=== PATIENT | male | born 1995 | race African-American/Black ===

== ENCOUNTER 2024-02-17 19:02 | Emergency (ER) | payer OTHER ==
--- NOTE | 2024-02-17 19:49 | ED Physician Documentation ---
PD HPI UPPER EXT INJURY - Stated complaint Stated Complaint: LT ANKLE INJ - Chief complaint Chief Complaint: Ext Problem - Additonal information Additional information: Patient was not seen by me, but by nurse practitioner Kandace. PAST MEDICAL HISTORY - Past Medical History Past Medical History: No - Past Surgical History Past Surgical History: No - Present Medications Home Medications: Ambulatory Orders Medication Instructions Recorded Confirmed No Known Home Medications 02/17/24 02/17/24 - Allergies Allergies/Adverse Reactions: Allergies Allergy/AdvReac Type Severity Reaction Status Date / Time No Known Drug Allergies Allergy Verified 02/17/24 19:34 - Social History Does the pt smoke?: No Smoking Status: Never smoker Does the pt drink ETOH?: No Does the pt have substance abuse?: No - Immunizations Immunizations are current?: Yes - POLST Patient has POLST: No Results - Vitals Vitals: Vital Signs - 24 hr 02/17/24 02/17/24 19:30 21:30 Temperature 36.8 C Heart Rate 76 85 Respiratory 18 16 Rate Blood Pressure 151/87 H 152/90 H O2 Saturation 98 100 Oxygen O2 Source Room air Departure - Departure Disposition: 01 Home, Self Care Clinical Impression: Closed left ankle fracture Instructions: ED Splint Care Aircast Splint Boot Follow-Up: [facility] [Provider Group] Comments: Thank you trusting us with your care. The radiologist is reading a possible fracture on your left ankle. It is at the medial malleolus and it is nondisplaced. We have placed you in a walking boot and want you to treat this as if it is a cast and leave it on at all times. We are also sending home with crutches and I would limit any weightbearing activity on your ankle until you are able to follow-up with Ortho. Call the [facility] to see if they want you following up with one of their docs or ours but I have gone ahead and given you the information to reach out to [facility] orthopedic surgeons for further evaluation under discharge paperwork. You could alternate between Tylenol and ibuprofen for any pain or discomfort make sure that you are icing frequently 20 minutes on 1 hour off and keeping your foot elevated above your heart anytime you are at rest especially when you are sleeping. Wishing you a speedy recovery. Forms: PCP List Discharge Date/Time: 02/17/24 21:30
--- NOTE | 2024-02-17 20:41 | XRAY Report ---
PROCEDURE: Ankle 3+V LT INDICATIONS: injury/pain TECHNIQUE: 3 views of the ankle were acquired. COMPARISON: None. FINDINGS: Bones: Questionable subtle cortical irregularity at the medial aspect of the medial malleolus. Ankle mortise is normally aligned. No suspicious bony lesions. Soft tissues: No tibiotalar joint effusion. Achilles tendon appears normal. Mild nonspecific soft tissue edema. IMPRESSION: Questionable nondisplaced fracture at the medial malleolus. Recommend clinical correlation for point tenderness. Repeat radiographs could be performed in 7-10 days for further evaluation if indicated cl inically. Reviewed by: David Coffman MD on 02/17/2024 8:40 PM PDT Approved by: David Coffman MD on 02/17/2024 8:40 PM PDT Station ID: [id number]
[2024-02-17] MEDS: IBUPROFEN 600 MG TABLET PO STA (20:53)
[2024-02-17] MEDS: ACETAMINOPHEN 325 MG TABLET PO STA (20:54)
[2024-02-17 21:33] VITALS: BP 152/90; O2SAT 100
--- NOTE | 2024-02-18 14:59 | ED Physician Documentation ---
PD HPI LOWER EXT INJURY - Stated complaint Stated Complaint: LT ANKLE INJ - Chief complaint Chief Complaint: Ext Problem - Additional information Additional information: 28-year-old male presents emergency department for left ankle pain. Patient says that he was playing [employer], he is unsure the exact mechanism of injury but somehow fell onto his left ankle rolled it did not hear any loud audible popping noises but did feel immediate pain to the left lateral malleolus. No pain to Achilles able to ambulate. PD PAST MEDICAL HISTORY - Past Medical History Past Medical History: No - Past Surgical History Past Surgical History: No - Present Medications Home Medications: Ambulatory Orders Medication Instructions Recorded Confirmed No Known Home Medications 02/17/24 02/17/24 - Allergies Allergies/Adverse Reactions: Allergies Allergy/AdvReac Type Severity Reaction Status Date / Time No Known Drug Allergies Allergy Verified 02/17/24 19:34 - Social History Does the pt smoke?: No Smoking Status: Never smoker Does the pt drink ETOH?: No Does the pt have substance abuse?: No - Immunizations Immunizations are current?: Yes - POLST Patient has POLST: No PD ED PE NORMAL - Vitals Vital signs reviewed: Yes - General General: Alert and oriented X 3, No acute distress, Well developed/nourished - Derm Derm: Normal color, Warm and dry, No rash - Extremities Extremities: Other (Left lower extremity: Tenderness to the left lateral malleolus medial region. Able to flex and extend mild swelling to the left lateral region of the ankle. No tenderness to Achilles) Results - Vitals Vitals: Oxygen O2 Source Room air - Rads (name of study) Left ankle x-ray Relevant Findings:: Final report received, EMP independent interpretation of test, Other (Possible nondisplaced fracture at the medial malleolus) PD Medical Decision Making - ED course ED course: 28-year-old male presents emergency department for left ankle tenderness. He was able to ambulate with any difficulty differentials include but not limited to sprain, contusion, fracture. X-rays confirm possible nondisplaced lateral malleolus fracture to the left ankle this is where patient was most tender. Patient is placed in a walking boot and was told to not remove the walking boot to treat it as if it is a splint till he is able to follow-up with Ortho outpatient. He was offered crutches and strongly advised to use crutches but patient declined and said that he wanted to hold off for now. ER return precautions given pain better controlled with Tylenol ibuprofen all questions answered safe for discharge. Departure - Departure Disposition: 01 Home, Self Care Clinical Impression: Closed left ankle fracture Qualifiers: Encounter type: initial encounter Qualified Code(s): S82.892A - Other fracture of left lower leg, initial encounter for closed fracture Instructions: ED Splint Care Aircast Splint Boot [facility]Up: [facility] [Provider Group] Comments: Thank you trusting us with your care. The radiologist is reading a possible fracture on your left ankle. It is at the medial malleolus and it is nondisplaced. We have placed you in a walking boot and want you to treat this as if it is a cast and leave it on at all times. We are also sending home with crutches and I would limit any weightbearing activity on your ankle until you are able to follow-up with Ortho. Call the [facility] to see if they want you following up with one of their docs or ours but I have gone ahead and given you the information to reach out to [facility] orthopedic surgeons for further ev aluation under discharge paperwork. You could alternate between Tylenol and ibuprofen for any pain or discomfort make sure that you are icing frequently 20 minutes on 1 hour off and keeping your foot elevated above your heart anytime you are at rest especially when you are sleeping. Wishing you a speedy recovery. Forms: PCP List Discharge Date/Time: 02/17/24 21:30
== END 2024-02-17 21:30 | disposition home or self-care (01) ==
LOC: ED 19:02
DX: S82.55XA Nondisplaced fracture of medial malleolus of left tibia, initial encounter for closed fracture (principal); X50.1XXA Overexertion from prolonged static or awkward postures, initial encounter; Y93.67 Activity, basketball
CPT/HCPCS: 73610; 99283; 99284; A9270